=== PATIENT | male | born 1995 | race African-American/Black ===

== ENCOUNTER 2018-01-29 07:14 | Emergency (ER) | payer BC ==
[2018-01-29] MEDS ORDERED: Dexamethasone 10 MG/ML VIAL ONE (08:33)
[2018-01-29] MEDS ORDERED: Ketorolac Tromethamine 30 MG/ML VIAL ONE (08:37)
--- NOTE | 2018-01-29 09:21 | RAD ---
CHEST TWO VIEWS: History: Cough, congestion. Comparison: 2007 FINDINGS: Lungs are clear. No pneumothorax or effusion. Cardiac silhouette and mediastinal contour appears with in normal limits. No focal airspace consolidation. IMPRESSION: No acute intrathoracic abnormality. POS: OFF
== END 2018-01-29 10:05 | disposition home or self-care (01) ==
LOC: ERS 07:14
DX: M94.0 Chondrocostal junction syndrome [Tietze] (principal); R09.82 Postnasal drip
CPT/HCPCS: 71046; 94640; 96372; J1100; J1885; J7620

== ENCOUNTER 2020-05-09 01:52 | Emergency (ER) | payer BC, OTHER ==
[2020-05-09] MEDS ORDERED: diphenhydrAMINE 50 MG/ML VIAL ONE (02:10)
[2020-05-09] MEDS ORDERED: methylPREDNISolone Sod Succ/PF 125 MG/2 ML VIAL ONE (02:10)
[2020-05-09] MEDS ORDERED: Famotidine/PF 20 mg/2ml Vial ONE (02:10)
[2020-05-09 02:50] LABS: Hemoglobin 16.2 g/dL (14.0-18.0); Mean Corpuscular HGB CONC 34.3 g/dL (32.0-36.0); Mean Corpuscular Hemoglobin 30.7 pg (27.0-31.0); Mean Corpuscular Volume 89.3 fL (78.0-98.0); Platelet Count 166 thou/uL (130-400); RBC Distribution Width 11.5 % (11.5-14.5); Red Blood Cell (RBC) Count 5.29 mill/uL (4.70-6.10); White Blood Cell (WBC) Count 3.1 thou/uL (4.8-10.8)
[2020-05-09 02:57] LABS: ALT (SGPT) 17 U/L (8-55); AST (SGOT) 20 U/L (5-34); Albumin 4.4 g/dL (3.5-5.0); Alkaline Phosphatase 63 U/L (40-110); Anion Gap 10 mmol/L (10-20); BUN (Urea Nitrogen) 14 mg/dL (8.9-20.6); Bilirubin, Total 0.3 mg/dL (0.2-1.2); Calc. Creatinine Clearance 0 mL/min (70-130); Calcium 9.1 mg/dL (7.8-10.44); Carbon Dioxide 27 mmol/L (22-29); Chloride 106 mmol/L (98-107); Estimated GFR-MDRD 86; Globulin 3.4 g/dL (2.4-3.5); Glucose 132 mg/dL (70-105); Potassium 3.7 mmol/L (3.5-5.1); Protein, Total 7.8 g/dL (6.0-8.3); Sodium 139 mmol/L (136-145)
[2020-05-09 03:21] LABS: Band 1 % (5-11); Eosinophils 7 % (0-10); Lymphocytes 47 % (21-51); MDiff Complete? YES; Monocytes 7 % (0-10); Neutrophil 38 % (42-75); Platelet Morphology Comment Appears Adequate; RBC Morphology Normal
[2020-05-09] MEDS ORDERED: Metoclopramide HCl 10 MG/2 ML VIAL ONE (03:22)
[2020-05-09] MEDS ORDERED: Ketorolac Tromethamine 30 MG/ML VIAL ONE (03:22)
--- NOTE | 2020-05-09 07:17 | CT ---
PRELIMINARY REPORT/[facility]/EMERGENCY AFTER HOURS PROCEDURE: EXAM: CT Head Without Intravenous Contrast. CLINICAL HISTORY: SUDDEN ONSET SOB WHILE AT WORK. TOOK TEMP AT WORK AND IT WAS "OVER 100" PT ALSO C/O HEADACHE. NO HX R EACTIVE AIRWAY DISEASE. TECHNIQUE: Axial computed tomography images of the head/brain without intravenous contrast. COMPARISON: None provided. FINDINGS: BRAIN: No acute intraparenchymal hemorrhage. No mass lesion. No CT evidence for acute territorial infarct. N o midline shift or extra-axial collection. VENTRICLES: No hydrocephalus. ORBITS: The orbits are unremarkable. SINUSES AND MASTOIDS: The paranasal sinuses and mastoid air cells are clear. SOFT TISSUES: No significant facial or scalp soft tissue swelling evident. No radiopaque foreign body is seen. BONES: No acute skull fracture. IMPRESSION: No acute intracranial abnormality. ELECTRONICALLY SIGNED BY: Gaye Smith MD May 09, 2020 2:55:25 AM CDT This report is intended for review by the ordering physician only, in accordance of law. If you recei ve this report in error, please call [facility] at [phone]. FINAL REPORT EMERGENCY AFTER HOURS CT BRAIN WITHOUT CONTRAST: FINDINGS/IMPRESSION: I agree with the findings and impression given in the preliminary report per [facility] physici an. No evidence of acute intracranial abnormality. POS: EAA
--- NOTE | 2020-05-09 07:54 | RAD ---
EXAM: Portable chest PROVIDED CLINICAL HISTORY: Shortness of breath COMPARISON: 01/29/2018 FINDINGS: Cardiac and mediastinal silhouette is within normal limits. No focal consolidation, pleural fluid or pneumothorax evident. IMPRESSION: No evidence for an acute cardiopulmonary process.
[2020-05-09 14:20] LABS: SARS-CoV-2 MS2 Positive; SARS-CoV-2 N Gene Negative; SARS-CoV-2 S Gene Negative; SARS-CoV-2 orf1ab Negative
== END 2020-05-09 03:45 | disposition home or self-care (01) ==
LOC: ERS 01:52
DX: T78.40XA Allergy, unspecified, initial encounter (principal); R06.00 Dyspnea, unspecified; R51 Headache; Z20.828 Contact with and (suspected) exposure to other viral communicable diseases
CPT/HCPCS: 70450; 71045; 80053; 85025; 87635; 94640; 96374; 96375; J1200; J1885; J2765; J2930; J7620; S0028; U0003

== ENCOUNTER 2022-03-28 02:17 | Emergency (ER) | payer BC, SELFPAY ==
[2022-03-28 03:41] LABS: Bacteria/HPF None Seen HPF (None Seen); Bilirubin Negative (Negative); Blood, Urine Negative (Negative); Clarity Clear (Clear); Glucose, Urine (Dipstick) Normal (Negative); Ketone, Urine Trace mg/dL (Negative); Leukocyte Negative Leu/uL (Negative); Mucous/LPF Rare LPF (<2+); Nitrite Negative (Negative); Protein, Urine (Dipstick) 100 mg/dL (Neg-Trace); RBC/HPF 0-3 HPF (0-3); Specific Gravity, Urine 1.036 (1.002-1.036); Squamous Epithelial 0-3 HPF (0-3); WBC/HPF 0-3 HPF (0-3)
[2022-03-28 03:47] LABS: Sperm/HPF 2+ HPF (None Seen)
== END 2022-03-28 04:02 | disposition home or self-care (01) ==
LOC: ERS 02:17
DX: I86.1 Scrotal varices (principal)
CPT/HCPCS: 76870; 81003; 81015; 93976